=== PATIENT | male | born 2000 | race Two or more races ===

== ENCOUNTER 2020-10-28 13:50 | Emergency (ER) | payer OTHER ==
[~2020-10-28] VITALS: Ht 185.4 cm; Wt 113.0 kg
[2020-10-28] MEDS ORDERED: ACETAMINOPHEN 325MG TABLET PO ONE (19:30)
[2020-10-28] MEDS ORDERED: IBUPROFEN 400MG TABLET PO ONE (20:30)
[2020-10-28] MEDS ORDERED: DEXAMETHASONE 4MG TABLET PO ONE (20:30)
[2020-10-28 20:41] VITALS: BP 148/85
== END 2020-10-28 21:31 | disposition home or self-care (01) ==
LOC: ER 13:50
DX: J02.9 Acute pharyngitis, unspecified (principal); R03.0 Elevated blood-pressure reading, without diagnosis of hypertension; R00.0 Tachycardia, unspecified
CPT/HCPCS: 87070; 87077; 87430; 99284; J8540